=== PATIENT | female | born 2000 | race Two or more races ===

== ENCOUNTER → 2023-03-24 | Outpatient (CLI) | payer OTHER ==
[2023-03-24 13:15] LABS: HEMATOCRIT 35.8 % (36.0-47.0); HEMOGLOBIN 12.6 g/dl (12.0-15.5); MEAN CORPUSCULAR HEMOGLOBIN 31.8 pg (27.0-33.0); MEAN CORPUSCULAR HGB CONC 35.2 g/dl (32.0-36.5); MEAN CORPUSCULAR VOLUME 90.4 fl (80.0-96.0); PLATELET COUNT, AUTOMATED 252 10^3/uL (150-450); RED BLOOD COUNT 3.96 10^6/uL (4.00-5.40); WHITE BLOOD COUNT 9.4 10^3/uL (4.0-10.0)
[2023-03-24 13:49] LABS: HIV 1&2 SCREEN NEGATIVE (NEGATIVE)
[2023-03-24 13:58] LABS: HEPATITIS C VIRUS ABY INDEX 0.04 INDEX (<0.8)
[2023-03-24 14:54] LABS: GC DNA AMPLIFICATION NEGATIVE (NEGATIVE)
== END ==
LOC: M PLALAB 10:31
PROVIDERS: ATTEND Obstetrics & Gynecology
DX: Z34.01 Encounter for supervision of normal first pregnancy, first trimester (principal); Z3A.12 12 weeks gestation of pregnancy
CPT/HCPCS: 36415; 76815; 85027; 86762; 86780; 86803; 86850; 86900; 86901; 87086; 87340; 87389; 87810; 87850; G0463

== ENCOUNTER → 2023-05-19 | Outpatient (CLI) | payer OTHER | LOC: M WHC 12:42 | PROVIDERS: ATTEND Obstetrics & Gynecology | DX: Z34.02 Encounter for supervision of normal first pregnancy, second trimester (principal); Z3A.20 20 weeks gestation of pregnancy ==

== ENCOUNTER → 2023-06-24 | Outpatient (CLI) | payer OTHER ==
[2023-06-24 13:48] LABS: HEMATOCRIT 34.8 % (36.0-47.0); HEMOGLOBIN 11.7 g/dl (12.0-15.5); MEAN CORPUSCULAR HEMOGLOBIN 31.4 pg (27.0-33.0); MEAN CORPUSCULAR HGB CONC 33.6 g/dl (32.0-36.5); MEAN CORPUSCULAR VOLUME 93.3 fl (80.0-96.0); PLATELET COUNT, AUTOMATED 242 10^3/uL (150-450); RED BLOOD COUNT 3.73 10^6/uL (4.00-5.40); WHITE BLOOD COUNT 12.2 10^3/uL (4.0-10.0)
[2023-06-24 15:03] LABS: CHLAMYDIA DNA AMPLIFICATION NEGATIVE (NEGATIVE); GC DNA AMPLIFICATION NEGATIVE (NEGATIVE)
== END ==
LOC: M PLALAB 10:50
PROVIDERS: ATTEND Obstetrics & Gynecology
DX: Z34.02 Encounter for supervision of normal first pregnancy, second trimester (principal); Z87.891 Personal history of nicotine dependence
CPT/HCPCS: 36415; 82950; 85027; 86850; 86900; 86901; 87810; 87850; G0463

== ENCOUNTER → 2023-07-23 | Outpatient (CLI) | payer OTHER | LOC: M WHC 07:05 | PROVIDERS: ATTEND Obstetrics & Gynecology | DX: O26.843 Uterine size-date discrepancy, third trimester (principal); O32.1XX0 Maternal care for breech presentation, not applicable or unspecified; Z3A.29 29 weeks gestation of pregnancy ==

== ENCOUNTER → 2023-09-07 | Outpatient (REF) | payer OTHER | LOC: M PLALAB 15:39 | PROVIDERS: ATTEND Obstetrics & Gynecology | DX: Z36.89 Encounter for other specified antenatal screening (principal); Z3A.36 36 weeks gestation of pregnancy ==

== ENCOUNTER → 2023-09-15 | Outpatient (CLI) | payer OTHER | LOC: M RAD 07:43 | PROVIDERS: ATTEND Obstetrics & Gynecology | DX: O26.849 Uterine size-date discrepancy, unspecified trimester (principal); Z3A.37 37 weeks gestation of pregnancy ==

== ENCOUNTER 2023-10-01 22:14 | Outpatient (CLI) | payer OTHER ==
[~2023-10-01] VITALS: Ht 167.6 cm; Wt 88.3 kg
[2023-10-01 22:25] VITALS: BP 122/70
== END 2023-10-01 23:38 | disposition home or self-care (01) ==
LOC: M LDO 22:14
PROVIDERS: ATTEND Specialist
DX: O36.8130 Decreased fetal movements, third trimester, not applicable or unspecified (principal); O26.893 Other specified pregnancy related conditions, third trimester; M54.50 Low back pain, unspecified; Z3A.39 39 weeks gestation of pregnancy
CPT/HCPCS: 59025; G0463

== ENCOUNTER 2023-10-06 05:49 | Inpatient (IN) | payer OTHER ==
[2023-10-06] VITALS (34 sets, daily range): BP systolic 100–226; BP diastolic 56–126; O2SAT 16–100
[~2023-10-06] VITALS: Ht 167.6 cm; Wt 86.7 kg
[2023-10-06 06:37] LABS: HEMATOCRIT 36.1 % (36.0-47.0); HEMOGLOBIN 12.4 g/dl (12.0-15.5); MEAN CORPUSCULAR HEMOGLOBIN 30.9 pg (27.0-33.0); MEAN CORPUSCULAR HGB CONC 34.3 g/dl (32.0-36.5); PLATELET COUNT, AUTOMATED 251 10^3/uL (150-450); RED BLOOD COUNT 4.01 10^6/uL (4.00-5.40); WHITE BLOOD COUNT 15.1 10^3/uL (4.0-10.0)
[2023-10-06] MEDS: LR 1,000 ML IV SCH (07:29)
[2023-10-06] MEDS ORDERED: ACET-897 PO (07:39)
[2023-10-06] MEDS ORDERED: TUMS500C PO (07:39)
[2023-10-06] MEDS ORDERED: PRENTAB9 PO (07:39)
[2023-10-06] MEDS ORDERED: HOME MED LIST COMPLETE! XX SCH (07:40)
[2023-10-06] MEDS ORDERED: FENTANYL 2MCG/ML ROPIVACAINE 0.2% IN 0.9% NACL 100ML IVBAG As Ordered ONE (07:57)
[2023-10-06] MEDS ORDERED: NALOXONE INJ 0.4MG/1ML VIAL IV PRN (08:00)
[2023-10-06] MEDS ORDERED: EPIDURAL/PCA KEYS XX PRN (08:00)
[2023-10-06] MEDS ORDERED: diphenhydrAMINE 50MG/ML VIAL IV PRN (08:00)
[2023-10-06] MEDS ORDERED: ePHEDrine SULFATE 25 MG/5 ML(5MG/ML) SYRINGE IVP PRN (08:00)
[2023-10-06] MEDS ORDERED: ONDANSETRON 4MG 2ML VIAL IV PRN (08:00)
[2023-10-06] MEDS ORDERED: LR 500 ML IV PRN (08:00)
[2023-10-06] MEDS: FENTANYL/ROPIVACAINE/NACL BAG 100 ML EPIDURAL SCH (08:47)
[2023-10-06] MEDS ORDERED: OXYTOCIN 30UNITS IN 0.9% NaCl 500ML IV BAG As Ordered ONE (09:24)
[2023-10-06] MEDS: OXYTOCIN DRIP 30 UNITS in IV 1 EA IV SCH (09:40)
[2023-10-06] MEDS ORDERED: LIDOCAINE 1% MDV 20ML VIAL As Ordered ONE (09:42)
[2023-10-06] MEDS ORDERED: DOCUSATE SODIUM 100MG CAPSULE PO PRN (10:05)
[2023-10-06] MEDS ORDERED: RHO(D) IMMUNE GLOBULIN/MALTOSE 500MCG(2500IU)/2.2ML VIAL (WINRHO) IM SCH (10:05)
[2023-10-06] MEDS ORDERED: METHYLERGONOVINE MALEATE 0.2 MG TAB PO PRN (10:05)
[2023-10-06] MEDS: LIDOCAINE 1% MDV 20ML VIAL SC ONE (10:16)
[2023-10-06] MEDS: IBUPROFEN 600MG TAB PO PRN (12:05)
[2023-10-07] MEDS: ACETAMINOPHEN TAB 650MG DOSE (2X325MG) PO PRN (00:58)
[2023-10-07 06:00] VITALS: BP 102/56; O2SAT 97
[2023-10-07] MEDS: PRENATAL VITAMINS CHEWABLE TABLET PO SCH (07:34)
[2023-10-07] MEDS: IBUPROFEN 800 MG TAB PO PRN (07:34)
[2023-10-07] MEDS: DIBUCAINE 1% OINTMENT 30GM TOP PRN (07:35)
[2023-10-07 18:00] VITALS: BP 122/66; O2SAT 97
[2023-10-07] MEDS: ACETAMINOPHEN 500 MG TAB PO PRN (22:08)
[2023-10-08 06:00] VITALS: BP 107/61; O2SAT 99
[2023-10-08] MEDS ORDERED: MEASLES,MUMPS,RUBELLA VACCINE INJ (MMR-II) SC.IMMUN ONE (09:00)
[2023-10-08] MEDS: INFLUENZA QUADRIVALENT PF VACCINE 0.5ML SYRINGE IM.IMMUN ONE (12:32)
== END 2023-10-08 15:35 | disposition home or self-care (01) | DRG 807 ==
LOC: M LDO 05:49 → M LDI 06:35 → M OBS 12:40
PROVIDERS: ADMIT Advanced Practice Midwife; ATTEND Specialist
PROC: 10E0XZZ Delivery of Products of Conception, External Approach (ICD-10-PCS; principal; 2023-10-06)
PROC: 0KQM0ZZ Repair Perineum Muscle, Open Approach (ICD-10-PCS; 2023-10-06)
PROC: 10907ZC Drainage of Amniotic Fluid, Therapeutic from Products of Conception, Via Natural or Artificial Opening (ICD-10-PCS; 2023-10-06)
PROC: 0HQ9XZZ Repair Perineum Skin, External Approach (ICD-10-PCS; 2023-10-06)
DX: O70.1 Second degree perineal laceration during delivery (principal); Z37.0 Single live birth; Z3A.40 40 weeks gestation of pregnancy; O70.0 First degree perineal laceration during delivery

== ENCOUNTER 2024-07-16 00:58 | Emergency (ER) | payer OTHER ==
[~2024-07-16] VITALS: Ht 162.6 cm; Wt 69.4 kg
[~2024-07-16 00:58] MED LIST: ACET-897 PO; PRENTAB9 PO; TUMS500C PO
[2024-07-16] MEDS: ACETAMINOPHEN 325 MG TAB PO ONE (01:39)
[2024-07-16 01:55] VITALS: BP 131/66; TEMP 101.7; O2SAT 98
== END 2024-07-16 01:58 | disposition home or self-care (01) ==
LOC: M ED 00:58
DX: J10.1 Influenza due to other identified influenza virus with other respiratory manifestations (principal); Z11.52 Encounter for screening for COVID-19